=== PATIENT | female | born 1980 | race Caucasian/White ===

== ENCOUNTER 2017-04-25 13:13 | Emergency (ER) | payer MEDICAID ==
[~2017-04-25] VITALS: Ht 165.1 cm; Wt 64.0 kg
[~2017-04-25 13:13] MED LIST: CYCL-259 PO; OXYC-223 PO
[2017-04-25] MEDS ORDERED: SODIUM CHLORIDE FLUSH 10ML SYR IVF ONE (14:30)
[2017-04-25] MEDS ORDERED: MORPHINE SULFATE 4 MG/ML, 1ML ONE ×2 (14:56→16:25)
[2017-04-25] MEDS: MORPHINE SULFATE 4 MG/ML, 1ML IVPush PRN ×2 (14:59→16:27)
[2017-04-25 15:07] LABS: HEMATOCRIT 43.7 % (34.6-47.8); HEMOGLOBIN 14.5 g/dL (11.7-16.4); WHITE BLOOD COUNT 11.6 x10^3/uL (3.4-10)
[2017-04-25 15:16] LABS: HCG UR OBC PASS
[2017-04-25 15:18] LABS: ASPARTATE AMINO TRANSFERASE 13 U/L (15-37); BLOOD UREA NITROGEN 10 mg/dL (7-18)
[2017-04-25] MEDS ORDERED: OMNIPAQUE 350 MG/ML, 100ML BOTTLE ONE (15:45)
[2017-04-25 16:30] VITALS: BP 112/82
== END 2017-04-25 17:10 | disposition home or self-care (01) ==
LOC: ED 17:00
DX: S22.31XA Fracture of one rib, right side, initial encounter for closed fracture (principal); Y04.0XXA Assault by unarmed brawl or fight, initial encounter; Y93.89 Activity, other specified; Y92.89 Other specified places as the place of occurrence of the external cause; Y99.8 Other external cause status
CPT/HCPCS: 36415; 71101; 74177; 80053; 81001; 81025; 85025; 85610; 87086; 96374; 96376; 99285; Q9967

== ENCOUNTER 2017-05-27 18:41 | Emergency (ER) | payer MEDICAID ==
[~2017-05-27] VITALS: Ht 165.1 cm; Wt 65.8 kg
[~2017-05-27 18:41] MED LIST changes: -OXYC-223 PO; +OXYC-306 PO
[2017-05-27] MEDS ORDERED: FAMOTIDINE 20 MG/2 ML IVP ONE (19:00)
[2017-05-27] MEDS ORDERED: ONDANSETRON 2MG/ML, 2ML IVPush ONE (19:00)
[2017-05-27] MEDS ORDERED: SODIUM CHLORIDE FLUSH 10ML SYR IVF ONE (19:00)
[2017-05-27] MEDS ORDERED: SODIUM CHLORIDE 0.9% 1,000ML IVBOLUS ONE (19:00)
[2017-05-27] MEDS ORDERED: FAMOTIDINE 20 MG/2 ML ONE (19:16)
[2017-05-27] MEDS ORDERED: MORPHINE SULFATE 4 MG/ML, 1ML ONE (19:16)
[2017-05-27] MEDS ORDERED: ONDANSETRON 2MG/ML, 2ML ONE (19:16)
[2017-05-27 19:20] LABS: HEMATOCRIT 43.4 % (34.6-47.8); HEMOGLOBIN 14.3 g/dL (11.7-16.4); WHITE BLOOD COUNT 8.6 x10^3/uL (3.4-10)
[2017-05-27 19:31] LABS: BLOOD UREA NITROGEN 10 mg/dL (7-18)
[2017-05-27 19:32] LABS: PATH.CAST-FLAG NOT PRESENT; SPERM-FLAG NOT PRESENT; SRC-FLAG NOT PRESENT; XTAL-FLAG NOT PRESENT; YLC-FLAG NOT PRESENT
[2017-05-27] MEDS: MORPHINE SULFATE 4 MG/ML, 1ML IVPush PRN ×2 (19:34→19:54)
[2017-05-27 19:42] LABS: ASPARTATE AMINO TRANSFERASE 18 U/L (15-37)
[2017-05-27] MEDS ORDERED: MAALOX/HYOSCYAMINE/LIDOCAINE 45 ML BTL PO ONE (20:00)
[2017-05-27 21:15] VITALS: BP 152/100
== END 2017-05-27 21:17 | disposition home or self-care (01) ==
LOC: ED 20:47
DX: K29.00 Acute gastritis without bleeding (principal); Z72.9 Problem related to lifestyle, unspecified; Z88.0 Allergy status to penicillin; Z88.8 Allergy status to other drugs, medicaments and biological substances; F17.200 Nicotine dependence, unspecified, uncomplicated; Z87.891 Personal history of nicotine dependence
CPT/HCPCS: 36415; 80053; 81001; 83690; 84703; 85025; 86677; 87086; 96361; 96374; 96375; 99284; J2405; J7030; S0028

== ENCOUNTER 2018-06-17 12:10 | Emergency (ER) | payer MEDICAID ==
[~2018-06-17] VITALS: Ht 165.1 cm; Wt 57.2 kg
[2018-06-17] MEDS ORDERED: HYDROmorphone 2 MG/ML, 1ML IVPush PRN (12:30)
[2018-06-17] MEDS ORDERED: MAALOX/HYOSCYAMINE/LIDOCAINE 45 ML BTL PO ONE (12:30)
[2018-06-17] MEDS ORDERED: SODIUM CHLORIDE FLUSH 10ML SYR IVF ONE (12:30)
[2018-06-17] MEDS ORDERED: MAALOX/HYOSCYAMINE/LIDOCAINE 45 ML BTL ONE (12:42)
[2018-06-17 12:46] LABS: BASOPHILS # (AUTO) 0.04 x10^3/uL (0-0.1); BASOPHILS % (AUTO) 1 % (0-1); EOSINOPHILS # (AUTO) 0.05 x10^3/uL (0-0.4); EOSINOPHILS % (AUTO) 1 % (1-7); LYMPHOCYTES # (AUTO) 1.96 x10^3/uL (1-3.4); LYMPHOCYTES % (AUTO) 29 % (22-44); MD NO; MEAN CORPUSCULAR HEMOGLOBIN 34.3 pg (27.0-34.8); MEAN CORPUSCULAR HGB CONC 33.8 g/dL (32.4-35.8); MEAN CORPUSCULAR VOLUME 101.5 fL (80-100); MEAN PLATELET VOLUME 8.2 fL (7.4-10.4); MONOCYTES % (AUTO) 6 % (2-9); NEUTROPHILS # (AUTO) 4.22 x10^3/uL (1.8-6.8); NEUTROPHILS % (AUTO) 63 % (42-75); PLATELET COUNT 298 x10^3/uL (130-400); RED BLOOD COUNT 4.39 x10^6/uL (3.82-5.3); RED CELL DISTRIBUTION WIDTH 13.9 % (9.6-15.2)
[2018-06-17 12:53] LABS: ALANINE AMINOTRANSFERASE 16 U/L (12-78); ALBUMIN 3.9 g/dL (3.4-5.0); ANION GAP 10 mmol/L (5-15); CALCIUM 9.3 mg/dL (8.5-10.1); CHLORIDE 108 mmol/L (98-107); CREATININE 0.88 mg/dL (0.55-1.02)
[2018-06-17 12:57] LABS: ALKALINE PHOSPHATASE 62 U/L (45-117); BILIRUBIN,TOTAL 0.2 mg/dL (0.2-1.0); TOTAL PROTEIN 7.5 g/dL (6.4-8.2)
[2018-06-17] MEDS ORDERED: HYDROmorphone 2 MG/ML, 1ML ONE (12:59)
[2018-06-17 13:16] VITALS: BP 126/98
== END 2018-06-17 14:36 | disposition home or self-care (01) ==
LOC: ED 12:52
DX: K29.00 Acute gastritis without bleeding (principal); K21.9 Gastro-esophageal reflux disease without esophagitis; Z87.891 Personal history of nicotine dependence
CPT/HCPCS: 36415; 76700; 80053; 83690; 84703; 85025; 96374; 99285; J1170

== ENCOUNTER 2019-01-06 11:29 | Emergency (ER) | payer MEDICAID ==
[~2019-01-06] VITALS: Ht 165.1 cm; Wt 59.2 kg
--- NOTE | 2019-01-06 11:45 | NUR ---
TO RM 27 FROM LOBBY AND THEN TO BATHROOM
--- NOTE | 2019-01-06 11:59 | NUR ---
PT TEARY HOLDING RIGHT SIDE. STATES SHE HAS HAD PAIN FOR A FEW DAYS WORSE THAN NORMAL
[2019-01-06] MEDS ORDERED: DICYCLOMINE 10 MG/ML, 2ML IM ONE (12:00)
[2019-01-06] MEDS ORDERED: MAALOX/HYOSCYAMINE/LIDOCAINE 45 ML BTL PO ONE (12:00)
[2019-01-06] MEDS ORDERED: DICYCLOMINE 10 MG/ML, 2ML ONE (12:21)
[2019-01-06] MEDS ORDERED: MAALOX/HYOSCYAMINE/LIDOCAINE 45 ML BTL ONE (12:21)
[2019-01-06 12:23] LABS: MICROSCOPIC NOT IND
[2019-01-06 12:26] LABS: CULTURE INDICATED? NO
[2019-01-06 12:28] LABS: BASOPHILS # (AUTO) 0.07 x10^3/uL (0-0.1); BASOPHILS % (AUTO) 1 % (0-1); EOSINOPHILS # (AUTO) 0.07 x10^3/uL (0-0.4); EOSINOPHILS % (AUTO) 1 % (1-7); LYMPHOCYTES # (AUTO) 2.54 x10^3/uL (1-3.4); LYMPHOCYTES % (AUTO) 34 % (22-44); MD NO; MEAN CORPUSCULAR HEMOGLOBIN 33.8 pg (27.0-34.8); MEAN CORPUSCULAR HGB CONC 33.7 g/dL (32.4-35.8); MEAN CORPUSCULAR VOLUME 100.3 fL (80-100); MEAN PLATELET VOLUME 7.5 fL (7.4-10.4); MONOCYTES # (AUTO) 0.48 x10^3/uL (0.2-0.8); MONOCYTES % (AUTO) 6 % (2-9); NEUTROPHILS # (AUTO) 4.31 x10^3/uL (1.8-6.8); NEUTROPHILS % (AUTO) 58 % (42-75); PLATELET COUNT 361 x10^3/uL (130-400); RED BLOOD COUNT 4.16 x10^6/uL (3.82-5.3); RED CELL DISTRIBUTION WIDTH 14.1 % (9.6-15.2)
--- NOTE | 2019-01-06 12:33 | NUR ---
CORRECTION ON 1159 NOTE. PT HOLDING LEFT SIDE WITH PAIN
--- NOTE | 2019-01-06 12:33 | NUR ---
MEDICATED PER ORDERS
[2019-01-06 13:24] LABS: ALANINE AMINOTRANSFERASE 17 U/L (12-78); ALBUMIN 3.9 g/dL (3.4-5.0); ANION GAP 4 mmol/L (5-15); CALCIUM 8.9 mg/dL (8.5-10.1); CHLORIDE 111 mmol/L (98-107)
[2019-01-06 13:29] LABS: ALKALINE PHOSPHATASE 52 U/L (45-117); CREATININE 0.87 mg/dL (0.55-1.02)
[2019-01-06 13:43] LABS: BILIRUBIN,TOTAL 0.2 mg/dL (0.2-1.0)
[2019-01-06 14:08] VITALS: BP 136/79
--- NOTE | 2019-01-06 14:09 | NUR ---
PT WATCHING TV. NO PAIN AT THE MOMENT BUT IT COMES IN WAVES. STATES NO IMPROVEMENT IN PAIN WHEN IT COMES SINCE MEDICATED. PT STATES IT HELPS TO HOLD PRESSURE AT THE SITE OF THE PAIN WHEN IT COMES
== END 2019-01-06 15:00 | disposition home or self-care (01) ==
LOC: ED 12:40
DX: K29.50 Unspecified chronic gastritis without bleeding (principal); K21.9 Gastro-esophageal reflux disease without esophagitis
CPT/HCPCS: 36415; 74022; 80053; 81003; 83690; 84703; 85025; 93005; 96372; 99284; J0500